=== PATIENT | female | born 1995 | race African-American/Black ===

== ENCOUNTER 2020-07-10 09:05 | Emergency (ER) | payer MEDICAID ==
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
--- OUTSIDE RECORDS SUMMARY | 2020-07-10 10:07 | XMS REPORT | Continuity of Care Document ---
:1995 Author Organization [facility] t Address [address] [place] [address] Care Team Providers Name Role Phone Byron RN Attending Clinician Unavailable Only, Test Attending Clinician Unavailable Fang BAILEYP Attending Clinician Silvana Villagran MD Attending Clinician Donnell BAILEYP Attending Clinician Payers Payer Name Policy Type Policy Number Effective Date Expiration Date S ource Problems This patient has no known problems. Allergies, Adverse Reactions, Alerts Allergy Allergy Status Severity Reaction(s) Onset Inactive Treating Comm ents Source Name Type Date Date Clinician No Known DA Active U 2018-09 [facility]ie 09-20 Clear s 00:00: Ibanez 00 [facility] No Known DA Active U 2011-09 [facility] Allergie 09-22 Clear s 00:00: Ibanez 00 [facility] Medications This patient has no known medications. Procedures This patient has no known procedures. Encounters Start End Encounter Admission Attending Care Care Encounter Source Date/Time Date/Time Type Type Clinicians Facility Department ID 2020-06-28 2020-06-28 Letter Keshia Matthews [id number] 00:00:00 00:00:00 (Out) CHARLY 350.1.13.[address] [id number] 2020-06-26 2020-06-26 Laboratory Only, [facility] 1.2.840.114 [id number] 15:30:46 15:45:46 Only Test HEALTH 350.1.13.[address] [place] [address] [phone] Primary & 357 Specialty Care 2019-12-22 2019-12-22 Urgent Fang [facility] [id number] 11:09:20 11:51:26 Care Leticia HEALTH 350.1.13.[address] [place] [address] [phone] Primary & 370 Specialty Care 2019-12-17 2019-12-17 Telemedici [facility] [id number] 13:30:44 13:50:44 ne Visit Melinda Pina HEALTH 350.1.13.10 [place] 4.2.7.2.[address] [place] [address] [phone] Primary & 231 Specialty Care 2019-12-17 2019-12-[address] [facility] [facility] 1.2.840.114 [id number] 00:00:00 00:00:00 Melinda A HEALTH 350.1.13.[address] [place] [phone] Primary & 365 Specialty Care 2019-11-19 2019-11-19 Urgent Donnell [facility] 1.2.840.114 [id number] 11:57:33 14:28:07 Care Rania HEALTH 350.1.13.[address] [place] [address] [phone] Primary & 370 Specialty Care Results Test Description Test Time Test Comments Results Result [facility] e Comments - DUP AB/PEL/SC 2020-03-23 FAX: Y COMP 15:33:00 Nguyen Henderson [phone] [place]: St: REG FAX: Christo Dasilva MD [phone] Name: FATMATA MEDINA [facility] : 1995 Age/S: 25/F [address] [facility] Unit #: [id number] Loc: [place], [place] Phys: [place] [address] Acct: [id number] Dis Date: Status: REG RCR PHONE #: [phone] Exam Date: 03/23/2020 1500 FAX #: [phone] Reason: DOPPLER OV EXAMS: CPT CODE: [id number] DUP AB/PEL/SC COMP 20730 ULTRASOUND: - DUP AB/PEL/SC COMP History: B-mode/Bowman scale imaging with color Doppler perfusion imaging and spectral analysis was performed. Spectral waveform analysis was performed at the ovarian level. Good flow pattern seen for both ovaries. Impression: Normal arterial flow pattern for both ovaries seen with good symmetry maintained. Location: U 19 at 1533 Reported and signed by: Sid Pappas M.D CC: Nguyen Henderson MD; Christo Carey MD Technologist: SADAF DUGAN Trnscrd Date/Time/By: 03/23/2020 (1533) : By: [email or web address] PAGE 1 Signed Report FAX: Nguyen Washburn [phone] [place]: St: REG FAX: Christo Dasilva MD [phone] Name: FATMATA MEDINA [facility] : 1995 Age/S: 25/F [address] Unit #: [id number] Loc: [place], [place] Phys: [place] [address] Acct: [id number] Dis Date: Status: REG RCR PHONE #: [phone] Exam Date: 03/23/2020 1500 FAX #: [phone] Reason: DOPPLER OV EXAMS: CPT CODE: [id number] DUP AB/PEL/SC COMP 47147 <Continued> Orig Print D/T: S: 03/23/2020 (4111) PAGE 2 Signed Report - LMN-1 LTD 2020-03-23 FAX: Fabiola 15:08:00 Nguyen Henderson [phone] [place]: St: REG FAX: Christo Dasilva MD [phone] Name: FATMATA MEDINA [facility] : 1995 Age/S: 25/F [address] Unit #: [id number] Loc: [place], [place] Phys: [place] [address] Acct: [id number] Dis Date: Status: REG RCR PHONE #: [phone] Exam Date: 03/23/2020 1501 FAX #: [phone] Reason: VIABILITY EXAMS: CPT CODE: [id number] LMN-1 LTD 49628 EXAM: OBSTETRICAL ULTRASOUND, 1ST TRIMESTER INDICATION: Evaluate for viability COMPARISON: None available. TECHNIQUE: Sonographic evaluation of the uterus. FINDINGS: The uterus is normal in size measuring 13.3 x 7.9 x 8.7 cm. Right ovary measures 3.3 x 1.9 x 2.4 cm and the left ovary measures 3.2 x 1.9 x 2.8 cm. The bilateral ovaries are normal with no evidence of torsion. There are no adnexal masses bilaterally. There is no free fluid in the cul-de-sac. A gestational sac is present in the uterus. Within it is an embryo with a crown-rump length of 4.0 cm, corresponding to a gestational age of 11 weeks 0 days, which is compatible with the LMP date. A yolk sac and embryonic heart motion were observed. The heart rate measures 157 bpm. IMPRESSION: Single, live intrauterine gestation at 11 weeks 0 days based on today's crown-rump length. heart rate measures 157 bpm. LOCATION: B2 at 1508 Reported and signed by: Kathia Bower M.D. CC: Nguyen Henderson MD; Christo Carey MD Technologist: SADAF DUGAN [facility] Date/Time/By: 03/23/2020 (1508) : By: 16 PAGE 1 Signed Report FAX: Nguyen Washburn [phone] [place]: St: [facility] FAX: Christo Dasilva MD [phone] Name: FATMATA MEDINA [facility] : 1995 Age/S: 25/F [address] [facility] Unit #: [id number] Loc: [place], [place]: [place] [address] Acct: [id number] Dis Date: Status: REG RCR PHONE #: [phone] Exam Date: 03/23/2020 1501 FAX #: [phone] Reason: VIABILITY EXAMS: CPT CODE: [id number] [place] LTD [address]114 <Continued> Orig Print D/T: S: 03/23/2020 (3211) PAGE 2 Signed Report UR HCG QUAL 2019-11-15 13:02:00 Test Item Value Reference Range Interpretation Comme nts UR HCG QUAL (test code = HCGQLU) NEGATIVE NEGATIVE URINALYSIS [id number] 12:06:00 Test Item Value Reference Range Interpretation Comments UA COLOR (test code = YELLOW COLU) UA APPEARANCE (test code SLHZY = APPU) UA GLUCOSE DIPSTICK (test NORMAL mg/dl NORMAL code = DGLUU) UA BILIRUBIN DIPSTICK NEGATIVE mg/dL NEGATIVE (test code = BILU) UA KETONE DIPSTICK (test 15 mg/dl mg/dl NEGATIVE A code = KETU) UA SPECIFIC GRAVITY (test 1.025 1.000-1.030 code = SGU) UA BLOOD DIPSTICK (test 150 Cl/micL NEGATIVE A code = MORELIA) Cl/micL UA PH DIPSTICK (test code 6.0 5.0-9.0 = JUDIE) UA PROTEIN DIPSTICK (test 100 mg/dl NEGATIVE A code = PROU) UA UROBILINIOGEN DIPSTICK 1.0 mg/dl mg/dl NORMAL A (test code = URO) UA NITRITE DIPSTICK (test NEGATIVE NEGATIVE code = MANUEL) UA LEUKOCYTE ESTERASE NEGATIVE Kolby/micL NEGATIVE DIPSTICK (test code = LEUU) UA WBC (test code = WBCU) 0-3 WBC/HPF NONE UA RBC (test code = RBCU) 1-3 RBC/HPF 0-3 UA EPITHELIAL CELLS (test 2-5 EPI/HPF 0-3 A code = EPIU) UA BACTERIA (test code = FEW NONE BACU) UA MUCUS (test code = TRACE MUCU) URINALYSIS [id number] 11:59:00 Test Item Value Reference Range Interpretation Comments UA COLOR (test code = YELLOW COLU) UA APPEARANCE (test code SLHZY = APPU) UA GLUCOSE DIPSTICK (test NORMAL mg/dl NORMAL code = DGLUU) UA BILIRUBIN DIPSTICK NEGATIVE mg/dL NEGATIVE (test code = BILU) UA KETONE DIPSTICK (test 15 mg/dl mg/dl NEGATIVE A code = KETU) UA SPECIFIC GRAVITY (test 1.025 1.000-1.030 code = SGU) UA BLOOD DIPSTICK (test 150 Cl/micL NEGATIVE A code = MORELIA) Cl/micL UA PH DIPSTICK (test code 6.0 5.0-9.0 = JUDIE) UA PROTEIN DIPSTICK (test 100 mg/dl NEGATIVE A code = PROU) UA UROBILINIOGEN DIPSTICK 1.0 mg/dl mg/dl NORMAL A (test code = URO) UA NITRITE DIPSTICK (test NEGATIVE NEGATIVE code = MANUEL) UA LEUKOCYTE ESTERASE NEGATIVE Kolby/micL NEGATIVE DIPSTICK (test code = LEUU) UA WBC (test code = WBCU) WBC/HPF NONE UA RBC (test code = RBCU) RBC/HPF 0-3 UA EPITHELIAL CELLS (test EPI/HPF 0-3 code = EPIU) UA BACTERIA (test code = NONE BACU) SURGICAL [id number] 09:59:00 RUN DATE: 09/15/19 [facility] *LIVE* PAGE 1 RUN TIME: 1000 Specimen Inquiry RUN USER: INTERFACE PATIENT: MEDINAFATMATA LOC: TAN Bui #: [id number] AGE/SX: 24/F [facility]: Christo Carey MD : [birth year] BED: 1 DIS: STATUS: ADM IN TLOC: SPEC #: [id number] RECD: 09/13/19 STATUS: SOUJose REQ #: [id number] BERNARDA: 09/13/19 [facility] DR: Christo Carey MD ENTERED: 09/15/19 SP TYPE: SURG SPEC OTHR DR: Self Referred Tang Godwin MD Files,Jessica Carrasco MDORDERED: GM LEVEL 4 CODES: [id number] - PLACENTA, NOS COPIES TO: Self Referred Tang Godwin MD [address] [place] [address] Mariana,Jessica Carrasco MD [address] [place] [address] [address] [place] [id number] Christo Carey MD [address] [place] [address] PROCEDURES: GM LEVEL 4 (Incomplete) TISSUES: 1. PLACENTA, NOS - Placenta, 3rd trimester. FINAL DIAGNOSIS Placenta,3rd trimester: Lima placenta with umbilical cord containing three vessels, small placenta for gestational age representing approximately the 25th percentile. GROSS AND MICROSCOPIC GROSS DESCRIPTION: Received in formalin and labeled placenta is a placenta with membranes and umbilical cord. The surface of the placenta is bluish bowman with blood vessels coursing over thesurface away from the insertion of the umbilical cord. The maternal surface of the placenta is intact with a scant amount of hemorrhage. The placenta is bread loafed and the parenchyma is beefy-red without substantial infarct. The membranes are thickened and cloudy. SECTIONS: (A) - cord close to CONTINUED ON NEXT PAGE ----- -------RUN DATE: 09/15/19 [facility] *LIVE* PAGE 2 RUN TIME: 1000 Specimen Inquiry RUN USER: INTERFACE SPEC #: [id number] PATIENT: FATMATA MEDINA #[id number] (Continued) GROSS AND MICROSCOPIC (Continued) insertion into placenta; (B)-mid cord and membranes; (C)- end of cord; (D)-placenta close to insertion of umbilical cord; (E)-mid placenta; (F)-placental margin. The placenta weighs 445 g without the attached umbilical cord and membranes. The placenta measures 13.5 x 14.5 x 3.5 cm. The segment of umbilical cord measures 37 cm in length and 0.7 cm in diameter. The cord does show increased twisting but does not contain true or false knots. MICROSCOPIC EXAMINATION: Sections of the umbilical cord reveal three vessels without significant inflammation. The membranes do not show significant inflammation. The underlying maternal decidua of the membranes shows a mixed inflammatory infiltrate which is expected. The umbilical cord does not show significant inflammation from the section from closest to the infant. The surface of the placenta does not show a significant inflammatory infiltrate. Blood vessels on the surface do not show a significant inflammatory infiltrate. Maturation is appropriate for gestational age. The underlying maternal decidua beneath the placenta contains a mixed inflammatory infiltrate. No substantial vasculitis is identified in the membranes are in the maternal decidua. The placenta is slightly small for gestational age representing approximately t he 25th percentile. POST-OP DIAGNOSIS @ 38.3 week gestation with elevated blood pressure and edema to bilateral upper and lower extremities, delivered PRE-OP DIAGNOSIS @ 38.3 week gestation with elevated blood pressure and edema to bilateral upper and lower extremities, delivered Signed SIGNATURE ON FILE Dennise Monet MD 09/15/19 0959 END OF REPORT BASIC METABOLIC [id number] 07:59:00 Test Item Value Reference Range Interpretation Comments SODIUM (test code = NA) 142 mEq/L 134-147 N POTASSIUM (test code = 4.0 mEq/L 3.4-5.0 N K) CHLORIDE (test code = 107 mEq/L 100-108 N CL) CARBON DIOXIDE (test 29 mEq/L 21-33 code = CO2) ANION GAP (test code = 10 0-20 N GAP) GLUCOSE (test code = 68 mg/dL 70-110 L GLU) BLOOD UREA NITROGEN 9 mg/dL 7-18 N (test code = BUN) GLOMERULAR FILTRATION 108.5 110-120 L Units of measure = RATE (test code = GFR) ml/mi n/1.73 m2 CREATININE (test code = 0.8 mg/dL 0.6-1.3 N CREAT) CALCIUM (test code = 7.8 mg/dL 8.0-10.5 L CA) B-TYPE NATRIURETIC [id number] 07:46:00 Test Item Value Reference Range Interpretation Comments B-TYPE NATRIURETIC PEPTIDE (test 230.0 PG/ML 0-100 H code = BNP) [id number] 19:55:00 Test Item Value Reference Range Interpretation Comments TROPONIN-I 0.020 ng/mL 0.000-0.045 N Negative: <= (test code = 0.045 Positive: TROPI) >= 0.046 Correl ation with serial results, other cardiac markers andclin ical findings is necessary to determine the clinicalsignifi cance of this result. Results using different metho dologies should not be c omparedto one another as juan titative results may jenelle y by method. - DUP VEIN [id number] 16:15:00 Name: FATMATA MEDINA [facility] : 1995 Age/S: 24 / F [address] [place] [address] Blvd Unit #: [id number] Loc: [place] [id number] Phys: Dorie Sanches VALIDATION MANAGER Acct: [id number] Dis Date: Status: ADM IN PHONE #: [phone] Exam Date: 09/13/2019 1613 FAX #: [phone] Reason: BLE edema, pain in left calf EXAMS: CPTCODE: [id number] DUP VEIN ANIYAH [address]97[address] Clinical Indication: Left calf pain, bilateral lower extremity edema; one day . Comparison: None TECHNIQUE: Sonographic evaluation of the bilateral lower extremity veinswas performed using high resolution B-mode imaging, along with pulse and color Doppler imaging. FINDINGS: Right lower extremity: The common femoral vein, femoral vein, popliteal vein and visualized posterior tibial/calf veins are patent. There is no echogenic debris to suggest deep venous thrombosis. The saphenofemoral junction is unremarkable. Left lower extremity: The common femoral vein, femoral vein, popliteal vein and visualized posterior tibial/calf veins are patent. There is no echogenic debris to suggest deep venous thrombosis. The saphenofemoral junction is unremarkable. Diffuse subcutaneous edema. IMPRESSION: 1. No deep venous thrombosis of the lower extremities. 2. Diffuse subcutaneous edema. SL: [id number] Electronically Signed by Arturo Patterson on09/13/2019 at 1615 Reported and signed by: Narciso Patterson M.D. CC: Dorie Sanches VALIDATION MANAGER; Christo Carey MD Technologist: Renée Berman RDMS(Silvana)(RCT) Trnscb Date/Time: 09/13/2019 (1614) [id number] Orig Print D/T: S: 09/13/2019 (1617) Probe: PAGE 1 Signed [id number] 13:33:00 Test Item Value Reference Range Interpretation Comments TROPONIN-I 0.019 ng/mL 0.000-0.045 N Negative: <= (test code = 0.045 Positive: TROPI) >= 0.046 Correl ation with serial results, other cardiac markers andclin ical findings is necessary to determine the clinicalsignifi cance of this result. Results using different metho dologies should not be c omparedto one another as juan titative results may jenelle y by method. [id number] 13:00:00 Test Item Value Reference Range Interpretation Comments MAGNESIUM (test code = MAG) 4.50 mg/dL 1.8-2.4 HH RAPID PLASMA [id number] 10:29:00 Test Item Value Reference Range Interpretation Comments RAPID PLASMA REAGIN (test code = NONREACTIVE NONREACTIVE RPR) AG HEPATITIS B [id number] 10:29:00 Test Item Value Reference Range Interpretation Comments AG HEPATITIS B SURFACE NON REACTIVE INDEX NonReactive (test code = HBSAG) AB HIV 1 10:29:00 Test Item Value Reference Range Interpretation Comments AB HIV 1 2 (test code = NONREACTIVE INDEX NONREACTIVE AMD44AQ) CBC W/AUTO [id number] 05:27:00 Test Item Value Reference Range Interpretation Comments WHITE BLOOD CELL (test code = 15.33 x10 3/uL 4.5-11.0 H WBC) RED BLOOD CELL (test code = 3.54 x10 6/uL 3.54-5.02 N RBC) HEMOGLOBIN (test code = HGB) 9.8 g/dL 11.0-15.0 L HEMATOCRIT (test code = HCT) 30.4 % 33.0-45.0 L MEAN CELL VOLUME (test code = 85.9 fL 81.0-99.0 N MCV) MEAN CELL HGB (test code = 27.7 pg 27.0-33.0 N MCH) MEAN CELL HGB CONCETRATION 32.2 g/dL 33.0-37.0 L (test code = MCHC) RED CELL DISTRIBUTION WIDTH CV 13.9 % 11.5-14.5 N (test code = RDW) RED CELL DISTRIBUTION WIDTH SD 42.9 fL 37.0-54.0 N (test code = RDW-SD) PLATELET COUNT (test code = 237 x10 3/uL 150-400 N PLT) MEAN PLATELET VOLUME (test 12.6 fL 7.0-9.0 H code = MPV) NEUTROPHIL % (test code = NT%) 88.9 % 56.0-77.0 H IMMATURE GRANULOCYTE % (test 1.4 % 0.0-2.0 N code = IG%) LYMPHOCYTE % (test code = LY%) 5.2 % 14.0-32.0 L MONOCYTE % (test code = MO%) 4.4 % 4.8-9.0 L EOSINOPHIL % (test code = EO%) 0.0 % 0.3-3.7 L BASOPHIL % (test code = BA%) 0.1 % 0.0-2.0 N NUCLEATED RBC % (test code = 0.0 % 0-0 N NRBC%) NEUTROPHIL # (test code = NT#) 13.63 x10 3/uL 2.0-7.6 H IMMATURE GRANULOCYTE # (test 0.22 x10 3/uL 0.00-0.03 H code = IG#) LYMPHOCYTE # (test code = LY#) 0.80 x10 3/uL 1.0-3.8 L MONOCYTE # (test code = MO#) 0.67 x10 3/uL 0.1-0.8 N EOSINOPHIL # (test code = EO#) 0.00 x10 3/uL 0.0-0.2 N BASOPHIL # (test code = BA#) 0.01 x10 3/uL 0.0-0.2 N NUCLEATED RBC # (test code = 0.00 x10 3/uL 0.0-0.1 N NRBC#) MANUAL DIFF REQUIRED (test NO code = MDIFF) [id number] 01:06:00 Test Item Value Reference Range Interpretation Comments MAGNESIUM (test code = MAG) 3.80 mg/dL 1.8-2.4 H CORD VENOUS BLOOD [id number] 23:59:00 Test Item Value Reference Range Interpretation Comments CORD VENOUS PH (test code = 7.29 7.25-7.45 N PHCV) CORD VENOUS PCO2 (test code = 35 mmHg 27-49 N PCO2CV) CORD VENOUS PO2 (test code = 29 mmHg 17-41 N PO2CV) CORD VENOUS HCO3 (test code = 16.5 MMOL/L 12-28 N HCO3CV) CORD VENOUS BASE EXCESS (test -10.0 mmol/L -8.0-0.00 L code = BEXCV) CORD VENOUS 02 SAT (test code = 50 % O2SCV) CORD ARTERIAL BLOOD [id number] 23:59:00 Test Item Value Reference Range Interpretation Comments CORD BLOOD PH (test code = PH/C) 7.24 7.18-7.38 N CORD BLOOD PCO2 (test code = 40 mmHg 32-66 N PCO2/C) CORD BLOOD PO2 (test code = 31 mmHg 6-30 H PO2/C) CORD BLOOD HCO3 (test code = 17 mmol/L 17-27 N HCO3/C) BASE EXCESS CORD (test code = -10.0 mmol/L -8.0-0.0 L ANA/C) O2 SATURATION (test code = 50 % 72-77 L O2S/C) RAPID PLASMA [id number] 20:29:00 Test Item Value Reference Range Interpretation Comments RAPID PLASMA REAGIN (test code = RPR) NONREACTIVE AG HEPATITIS B [id number] 20:29:00 Test Item Value Reference Range Interpretation Comments AG HEPATITIS B SURFACE NON REACTIVE INDEX NonReactive (test code = HBSAG) AB HIV 1 20:29:00 Test Item Value Reference Range Interpretation Comments AB HIV 1 2 (test code = NONREACTIVE INDEX NONREACTIVE [id number]) RAPID PLASMA [id number] 15:51:00 Test Item Value Reference Range Interpretation Comments RAPID PLASMA REAGIN (test code = RPR) NONREACTIVE AG HEPATITIS B [id number] 15:51:00 Test Item Value Reference Range Interpretation Comments AG HEPATITIS B SURFACE NON REACTIVE INDEX NonReactive (test code = HBSAG) AB HIV 1 15:51:00 Test Item Value Reference Range Interpretation Comments AB HIV 1 2 (test code = BHT24DD) INDEX NONREACTIVE DRUGS OF ABUSE SCREEN [id number] 15:21:00 Test Item Value Reference Range Interpretation Comments URN COCAINE (test code NEGATIVE NEGATIVE = COCAURN) URN CANNABINOIDS (test POSITIVE NEGATIVE A code = CANNABURN) URN AMPHETAMINE (test NEGATIVE NEGATIVE code = AMPHETURN) URN BARBITURATE (test NEGATIVE NEGATIVE code = BARBITURN) URN BENZODIAZEPINE NEGATIVE NEGATIVE Cut-off v alue:200 (test code = BENZOURN) ng/mL URN OPIATES (test code NEGATIVE NEGATIVE Cut-o ff value:2000 = OPIATURN) ng/mL URN PHENCYCLIDINE (PCP) NEGATIVE NEGATIVE Cuto ffs:Barbiturates (test code = PHENCURN) 200 ng/mLBenzodiaze pines 200 ng/ mLTHC Cannabinoids 50 ng/mLOpiates(Mo rphine) 2000 ng/mLAmphetamin e 1000 ng/mLCocaine 300 ng/ mLPCP phencyclidine 25 ng/mL Unconf irmed screening resul ts shouldnot be us ed for non-medical pur poses. URINALYSIS [id number] 15:15:00 Test Item Value Reference Range Interpretation Comments UA COLOR (test code = MANDY YEL/STRAW A COLU) UA APPEARANCE (test CLOUDY CLEAR A code = APPU) UA GLUCOSE DIPSTICK NEGATIVE NEGATIVE (test code = DGLUU) UA BILIRUBIN DIPSTICK NEGATIVE NEGATIVE (test code = BILU) UA KETONE DIPSTICK 3+ NEGATIVE A (test code = KETU) UA SPECIFIC GRAVITY 1.030 1.005-1.030 N (test code = SGU) UA BLOOD DIPSTICK 4+ NEGATIVE A (test code = MORELIA) UA PH DIPSTICK (test 5.0 5.0-7.0 N code = JUDIE) UA PROTEIN DIPSTICK 4+ NEGATIVE A (test code = PROU) UA UROBILINIOGEN 2.0 mg/dL 0.2-1.0 A DIPSTICK (test code = URO) UA NITRITE DIPSTICK NEGATIVE NEGATIVE (test code = MANUEL) UA LEUKOCYTE ESTERASE NEGATIVE NEGATIVE DIPSTICK (test code = LEUU) UA RBC (test code = 10-15 RBC/HPF 0-3 A RBCU) UA WBC NO REFLEX (test 0-3 WBC/HPF 0-3 Due t o QNS, urine code = WBCUCL) microscopy is performed on UNSPUNspecimen. UA WBC <10/HPF bob l not reflex urin e culture.If urin e culture is need ed, please order. UA BACTERIA (test code 2+ /HPF NONE SEEN A = BACU) UA SQUAMOUS CELLS 11-25 /HPF NONE SEEN A (test code = SQU) UA TRANSITIONAL CELLS TRACE /HPF NONE SEEN (test code = TRANU) UA RENAL CELLS (test 1+ /HPF NONE SEEN A code = CHANTAL) UA HYALINE CAST (test 20-30 /LPF NONE SEEN code = HYALU) UA MUCUS (test code = 1+ /LPF NONE SEEN MUCU) UA AMORPHOUS SEDIMENT 1+ /HPF NONE A (test code = AMORU) COMPREHENSIVE METABOLIC [id number] 15:15:00 Test Item Value Reference Range Interpretation Comments SODIUM (test code = NA) 138 mEq/L 134-147 N POTASSIUM (test code = 3.5 mEq/L 3.4-5.0 N K) CHLORIDE (test code = 108 mEq/L 100-108 N CL) CARBON DIOXIDE (test 21 mEq/L 21-33 N code = CO2) ANION GAP (test code = 13 0-20 N GAP) GLUCOSE (test code = 73 mg/dL 70-110 N GLU) BLOOD UREA NITROGEN 9 mg/dL 7-18 N (test code = BUN) GLOMERULAR FILTRATION 75.2 110-120 L Units of measure = RATE (test code = GFR) ml/mi n/1.73 m2 CREATININE (test code = 1.1 mg/dL 0.6-1.3 N CREAT) TOTAL PROTEIN (test 6.8 g/dL 6.4-8.2 N code = PROT) ALBUMIN (test code = 2.70 g/dL 3.4-5.0 L ALB) CALCIUM (test code = 8.5 mg/dL 8.0-10.5 N CA) BILIRUBIN TOTAL (test 0.5 MG/DL <1.5 N code = BILT) SGOT/AST (test code = 17 IUnit/L 15-37 N AST) SGPT/ALT (test code = 14 IUnit/L 15-65 L ALT) ALKALINE PHOSPHATASE 227 IUnit/L 20-125 H TOTAL (test code = ALKP) URIC [id number] 15:15:00 Test Item Value Reference Range Interpretation Comments URIC ACID (test code = URIC) 7.6 mg/dL 2.6-7.2 H LACTIC DEHYDROGENASE(LDH)[id number] 15:15:00 Test Item Value Reference Range Interpretation Comments LACTIC DEHYDROGENASE(LDH) (test 237 IUnits/L 84-246 N code = LDH) DRUGS OF ABUSE SCREEN [id number] 15:13:00 Test Item Value Reference Range Interpretation Comments URN COCAINE (test code NEGATIVE NEGATIVE = COCAURN) URN CANNABINOIDS (test NEGATIVE code = CANNABURN) URN AMPHETAMINE (test NEGATIVE NEGATIVE code = AMPHETURN) URN BARBITURATE (test NEGATIVE NEGATIVE code = BARBITURN) URN BENZODIAZEPINE NEGATIVE NEGATIVE Cut-off v alue:200 (test code = BENZOURN) ng/mL URN OPIATES (test code NEGATIVE NEGATIVE Cut-o ff value:2000 = OPIATURN) ng/mL URN PHENCYCLIDINE (PCP) NEGATIVE NEGATIVE Cuto ffs:Barbiturates (test code = PHENCURN) 200 ng/mLBenzodiaze pines 200 ng/ mLTHC Cannabinoids 50 ng/mLOpiates(Mo rphine) 2000 ng/mLAmphetamin e 1000 ng/mLCocaine 300 ng/ mLPCP phencyclidine 25 ng/mL Unconf irmed screening resul ts shouldnot be us ed for non-medical pur poses. CBC W/AUTO [id number] 15:06:00 Test Item Value Reference Range Interpretation Comments WHITE BLOOD CELL (test code = 8.99 x10 3/uL 4.5-11.0 N WBC) RED BLOOD CELL (test code = 4.19 x10 6/uL 3.54-5.02 N RBC) HEMOGLOBIN (test code = HGB) 11.6 g/dL 11.0-15.0 N HEMATOCRIT (test code = HCT) 36.1 % 33.0-45.0 N MEAN CELL VOLUME (test code = 86.2 fL 81.0-99.0 N MCV) MEAN CELL HGB (test code = MCH) 27.7 pg 27.0-33.0 N MEAN CELL HGB CONCETRATION 32.1 g/dL 33.0-37.0 L (test code = MCHC) RED CELL DISTRIBUTION WIDTH CV 14.0 % 11.5-14.5 N (test code = RDW) RED CELL DISTRIBUTION WIDTH SD 42.9 fL 37.0-54.0 N (test code = RDW-SD) PLATELET COUNT (test code = 255 x10 3/uL 150-400 N PLT) MEAN PLATELET VOLUME (test code 12.9 fL 7.0-9.0 H = MPV) NEUTROPHIL % (test code = NT%) 74.0 % 56.0-77.0 N IMMATURE GRANULOCYTE % (test 3.2 % 0.0-2.0 H code = IG%) LYMPHOCYTE % (test code = LY%) 13.6 % 14.0-32.0 L MONOCYTE % (test code = MO%) 7.2 % 4.8-9.0 N EOSINOPHIL % (test code = EO%) 1.7 % 0.3-3.7 N BASOPHIL % (test code = BA%) 0.3 % 0.0-2.0 N NUCLEATED RBC % (test code = 0.0 % 0-0 N NRBC%) NEUTROPHIL # (test code = NT#) 6.65 x10 3/uL 2.0-7.6 N IMMATURE GRANULOCYTE # (test 0.29 x10 3/uL 0.00-0.03 H code = IG#) LYMPHOCYTE # (test code = LY#) 1.22 x10 3/uL 1.0-3.8 N MONOCYTE # (test code = MO#) 0.65 x10 3/uL 0.1-0.8 N EOSINOPHIL # (test code = EO#) 0.15 x10 3/uL 0.0-0.2 N BASOPHIL # (test code = BA#) 0.03 x10 3/uL 0.0-0.2 N NUCLEATED RBC # (test code = 0.00 x10 3/uL 0.0-0.1 N NRBC#) MANUAL DIFF REQUIRED (test code NO = MDIFF) URINALYSIS [id number] 15:06:00 Test Item Value Reference Range Interpretation Comments UA COLOR (test code = COLU) MANDY YEL/STRAW A UA APPEARANCE (test code = APPU) CLOUDY CLEAR A UA GLUCOSE DIPSTICK (test code = NEGATIVE NEGATIVE DGLUU) UA BILIRUBIN DIPSTICK (test code = NEGATIVE NEGATIVE BILU) UA KETONE DIPSTICK (test code = 3+ NEGATIVE A KETU) UA SPECIFIC GRAVITY (test code = 1.030 1.005-1.030 N SGU) UA BLOOD DIPSTICK (test code = MORELIA) 4+ NEGATIVE A UA PH DIPSTICK (test code = JUDIE) 5.0 5.0-7.0 N UA PROTEIN DIPSTICK (test code = 4+ NEGATIVE A PROU) UA UROBILINIOGEN DIPSTICK (test 2.0 mg/dL 0.2-1.0 A code = URO) UA NITRITE DIPSTICK (test code = NEGATIVE NEGATIVE MANUEL) UA LEUKOCYTE ESTERASE DIPSTICK NEGATIVE NEGATIVE (test code = LEUU) UA RBC (test code = RBCU) RBC/HPF 0-3 DRUGS OF ABUSE SCREEN [id number] 19:56:00 Test Item Value Reference Range Interpretation Comments URN COCAINE (test code NEGATIVE NEGATIVE = COCAURN) URN CANNABINOIDS (test POSITIVE NEGATIVE A code = CANNABURN) URN AMPHETAMINE (test NEGATIVE NEGATIVE code = AMPHETURN) URN BARBITURATE (test NEGATIVE NEGATIVE code = BARBITURN) URN BENZODIAZEPINE NEGATIVE NEGATIVE Cut-off v alue:200 (test code = BENZOURN) ng/mL URN OPIATES (test code NEGATIVE NEGATIVE Cut-o ff value:2000 = OPIATURN) ng/mL URN PHENCYCLIDINE (PCP) NEGATIVE NEGATIVE Cuto ffs:Barbiturates (test code = PHENCURN) 200 ng/mLBenzodiaze pines 200 ng/ mLTHC Cannabinoids 50 ng/mLOpiates(Mo rphine) 2000 ng/mLAmphetamin e 1000 ng/mLCocaine 300 ng/ mLPCP phencyclidine 25 ng/mL Unconf irmed screening resul ts shouldnot be us ed for non-medical pur poses. DRUGS OF ABUSE SCREEN [id number] 19:32:00 Test Item Value Reference Range Interpretation Comments URN COCAINE (test code NEGATIVE NEGATIVE = COCAURN) URN CANNABINOIDS (test NEGATIVE code = CANNABURN) URN AMPHETAMINE (test NEGATIVE NEGATIVE code = AMPHETURN) URN BARBITURATE (test NEGATIVE NEGATIVE code = BARBITURN) URN BENZODIAZEPINE NEGATIVE NEGATIVE Cut-off v alue:200 (test code = BENZOURN) ng/mL URN OPIATES (test code NEGATIVE NEGATIVE Cut-o ff value:2000 = OPIATURN) ng/mL URN PHENCYCLIDINE (PCP) NEGATIVE NEGATIVE Cuto ffs:Barbiturates (test code = PHENCURN) 200 ng/mLBenzodiaze pines 200 ng/ mLTHC Cannabinoids 50 ng/mLOpiates(Mo rphine) 2000 ng/mLAmphetamin e 1000 ng/mLCocaine 300 ng/ mLPCP phencyclidine 25 ng/mL Unconf irmed screening resul ts shouldnot be us ed for non-medical pur poses. - US [id number] 18:51:00 Name: FATMATA MEDINA [facility] : 1995 Age/S: 24 / F [address] [place] [address] Blvd Unit #: [id number] Loc: [place], [place] Phys: Kailee Aviles MD Acct: [id number] Dis Date: Status: REG ER PHONE #: [phone] Exam Date: 07/21/2019 1846 FAX #: [phone] Reason: s/p fall in EXAMS: CPTCODE: [id number] [place] LTD 70641 PROCEDURE: LIMITED OBSTETRICAL ULTRASOUND INDICATION: s/p fall in EGA 30 weeks 6 days COMPARISON: 02/09/2019 1st trimester ultrasound TECHNIQUE: Limited obstetrical ultrasound is performed with grayscale and M-mode imaging. Formal assessment of anatomy not performed as part of this exam. FINDINGS: Single living intrauterine fetus in cephalic presentation. heart rate 144- 149. The placenta is anterior grade 1. No evidence for previa. No abnormal fluid collection to indicate hemorrhage. Amniotic fluidvolume is subjectively normal. The cervix is not demonstrated. ULTRASOUND FINDINGS: Gestation: Single: Yes Cardiac Motion: Yes (BPM):147 Presentation: Cephalic Placenta Location: Anterior Placenta Grade: 1 Placenta Previa: No Amniotic Fluid: Yes Uterus/Cervix/Adnexa: Clinical: LMP= MA= 30wks 6days DANYA: 18.6 cm S/D Ratio: 2.4 IMPRESSION: Single living intrauterine fetus in cephalic presentation. No acute abnormality demonstrated. SL: SURENDRA at 185 Reported and signed by: Raul Cornell M.D. PAGE 1 Signed Report (CONTINUED) Name: FATMATA MEDINA [place] : 1995 Age/S: 24 / F [address] [place] [address] Unit #: [id number] Loc: [place] [address] Phys: Kailee Aviles MD Acct: [id number] Dis Date: Status: REG ER PHONE #: [phone] Exam Date: 07/21/2019 184 FAX #: [phone] Reason: s/p fall in EXAMS: CPT CODE: [id number] LTD 07557 <Continued> CC: Kailee Aviles MD; Christo Carey MD Technologist: Radha Daniel RDMS() Trnscb Date/Time: 07/21/2019 (1850) t.SDR.KWL Orig Print D/T: S: 07/21/2019 (1853) Probe: PAGE 2 Signed Report- XR KNEE 1 OR 2 V [id number] 14:19:00 FAX: Leopoldo Esquivel MD [place]: St: [facility] FAX: Christo Dasilva MD [phone] Name: FATMATA MEDINA [facility] : 1995 Age/S: 24/F [address] Unit #: [id number] Loc: [place], [place] Phys: [place] [id number] Acct: [id number] Dis Date: Status: REG ER PHONE #: [phone] Exam Date: 07/21/2019 1405 FAX #: [phone] Reason: knee pain EXAMS: CPT CODE: [id number] XR KNEE 1 OR 2 V RT [id number] CLINICAL HISTORY: Right knee pain, fall previously. Two-view right knee. COMPARISON:February 14, 2018 Good alignment is seen with no evidence of fracture or dislocation. Small curvilinear calcification at the medial epicondylar region, likely old proximal medial collateral ligament trauma, occurring in the interval.. Mineralization pattern is intact. No obvious joint effusion is seen. IMPRESSION: No acute bone or joint space abnormality. Good alignment. No fracture seen. Location: U19 at 1419 Reported and signed by: Sid Pappas M.D. CC: Leopoldo Esquivel MD; Christo Carey MD Technologist: CESIA FLOWERS [facility] Date/Time/By: 07/21/2019 (1450) : By: [facility] PAGE 1 Signed Report FAX: Leopoldo Esquivel MD [place]: St: [facility] FAX: Christo Dasilva MD [phone] Name: FATMATA MEDINA [facility] : 1995 Age/S: 24/F [address] [facility] Unit #: [id number] Loc: [place], [place]: [place] [address] Acct: [id number] Dis Date: Status: REG ER PHONE #: [phone] Exam Date: 07/21/2019 1405 FAX #: [phone] Reason: knee pain EXAMS: CPT CODE: [id number] XR KNEE 1 OR 2 V RT [id number] <Continued> Orig Print D/T: S: 07/21/2019 (3460) PAGE 2 Signed ReportBASIC METABOLIC [id number] 13:18:00 Test Item Value Reference Range Interpretation Comments SODIUM (test code = NA) 140 mmol/l 134.0-147.0 N POTASSIUM (test code = K) 3.4 mmol/L 3.6-5.2 L CHLORIDE (test code = CL) 105 mmol/l 98.0-107.0 N CARBON DIOXIDE (test code = CO2) 24.0 mmol/l 21.0-33.0 N ANION GAP (test code = GAP) 14.4 0-20 N GLUCOSE (test code = GLU) 94 mg/dl 70.0-110.0 N BLOOD UREA NITROGEN (test code = 6 mg/dl 7.0-18.0 L BUN) CREATININE (test code = CREAT) 0.74 mg/dL 0.60-1.30 N GFR NON BLACK (test code = 104 mL/min 110-120 L GFRNONBLACK) GFR BLACK (test code = GFRBLACK) 126 mL/min 133-145 L CALCIUM (test code = CA) 8.4 mg/dl 8.0-10.5 N Specimen comments: Clean CatchHEPATIC FUNCTION PANEL [id number] 13:18:00 Test Item Value Reference Range Interpretation Comments TOTAL PROTEIN (test code = PROT) 6.9 GM/DL 6.0-8.1 N ALBUMIN (test code = ALB) 2.6 gm/dL 3.2-4.7 L BILIRUBIN TOTAL (test code = 0.3 mg/dl 0.0-1.0 N BILT) BILIRUBIN DIRECT (test code = 0.1 mg/dl 0.0-0.3 N BILD) SGOT/AST (test code = AST) 11 Units/L 15.0-37.0 L SGPT/ALT (test code = ALT) 12 Units/L 12.0-78.0 N ALKALINE PHOSPHATASE TOTAL (test 129 Units/L 50.0-136.0 N code = ALKP) Specimen comments: Clean CatchBASIC METABOLIC [id number] 13:13:00 Test Item Value Reference Range Interpretation Comments SODIUM (test code = NA) 140 mmol/l 134.0-147.0 N POTASSIUM (test code = K) 3.4 mmol/L 3.6-5.2 L CHLORIDE (test code = CL) 105 mmol/l 98.0-107.0 N CARBON DIOXIDE (test code = CO2) 24.0 mmol/l 21.0-33.0 N ANION GAP (test code = GAP) 14.4 0-20 N GLUCOSE (test code = GLU) mg/dl 70.0-110.0 BLOOD UREA NITROGEN (test code = mg/dl 7.0-18.0 BUN) CREATININE (test code = CREAT) mg/dL 0.60-1.30 GFR NON BLACK (test code = mL/min 110-120 GFRNONBLACK) GFR BLACK (test code = GFRBLACK) mL/min 133-145 CALCIUM (test code = CA) mg/dl 8.0-10.5 Specimen comments: Clean CatchHEPATIC FUNCTION PANEL [id number] 13:13:00 Test Item Value Reference Range Interpretation Comments TOTAL PROTEIN (test code = PROT) gm/dL 6.4-8.2 ALBUMIN (test code = ALB) gm/dl 3.2-4.7 BILIRUBIN TOTAL (test code = BILT) mg/dl 0.0-1.0 BILIRUBIN DIRECT (test code = BILD) mg/dl 0.0-0.3 SGOT/AST (test code = AST) Units/L 15.0-37.0 SGPT/ALT (test code = ALT) Units/L 12.0-78.0 ALKALINE PHOSPHATASE TOTAL (test Units/L 50.0-136.0 code = ALKP) Specimen comments: Clean CatchCBC W/AUTO [id number] 12:59:00 Test Item Value Reference Range Interpretation Comments WHITE BLOOD CELL (test code = 8.0 K/mm3 4.5-11.0 N WBC) RED BLOOD CELL (test code = 4.09 M/mm3 3.80-5.20 N RBC) HEMOGLOBIN (test code = HGB) 11.7 gm/dL 12.0-16.0 L HEMATOCRIT (test code = HCT) 36.3 % 36.0-48.0 N MEAN CELL VOLUME (test code = 88.8 UM3 82.0-99.0 N MCV) MEAN CELL HGB (test code = MCH) 28.6 UUG 25.5-32.5 N MEAN CELL HGB CONCETRATION 32.2 gm/dL 29.0-35.5 N (test code = MCHC) RED CELL DISTRIBUTION WIDTH 13.0 % 11.5-15.0 N (test code = RDW) RED CELL DISTRIBUTION WIDTH SD 41.6 fL 34.8-50.2 N (test code = RDW-SD) PLATELET COUNT (test code = 315 K/mm3 150-400 N PLT) MEAN PLATELET VOLUME (test code 10.9 fl 7.4-10.4 H = MPV) NEUTROPHIL % (test code = NT%) 73.2 % 49.0-76.0 N IMMATURE GRANULOCYTE % (test 1.1 % 0.0-0.4 H code = IG%) LYMPHOCYTE % (test code = LY%) 19.1 % 23.0-38.0 L MONOCYTE % (test code = MO%) 4.9 % 1.0-10.0 N EOSINOPHIL % (test code = EO%) 1.3 % 1.0-5.0 N BASOPHIL % (test code = BA%) 0.4 % 0.0-1.0 N NEUTROPHIL # (test code = NT#) 5.9 K/mm3 2.4-6.3 N IMMATURE GRANULOCYTE # (test 0.09 x10 3/uL 0.00-0.07 H code = IG#) LYMPHOCYTE # (test code = LY#) 1.5 K/mm3 1.2-4.0 N MONOCYTE # (test code = MO#) 0.4 K/mm3 0.0-0.6 N EOSINOPHIL # (test code = EO#) 0.1 K/MM3 0.0-0.7 N BASOPHIL # (test code = BA#) 0.0 K/mm3 0.0-0.2 N URINALYSIS [id number] 23:35:00 Test Item Value Reference Range Interpretation Comments UA COLOR (test code = COLU) YELLOW UA APPEARANCE (test code = CLEAR APPU) UA GLUCOSE DIPSTICK (test NORMAL mg/dl NORMAL code = DGLUU) UA BILIRUBIN DIPSTICK (test NEGATIVE mg/dL NEGATIVE code = BILU) UA KETONE DIPSTICK (test 150 mg/dl mg/dl NEGATIVE A code = KETU) UA SPECIFIC GRAVITY (test 1.015 1.000-1.030 code = SGU) UA BLOOD DIPSTICK (test NEGATIVE Cl/micL NEGATIVE code = MORELIA) UA PH DIPSTICK (test code = 6.0 5.0-9.0 JUDIE) UA PROTEIN DIPSTICK (test NEGATIVE mg/dl NEGATIVE code = PROU) UA UROBILINIOGEN DIPSTICK NORMAL mg/dl NORMAL (test code = URO) UA NITRITE DIPSTICK (test NEGATIVE NEGATIVE code = MANUEL) UA LEUKOCYTE ESTERASE NEGATIVE Kolby/micL NEGATIVE DIPSTICK (test code = LEUU) UA WBC (test code = WBCU) 0-3 WBC/HPF NONE UA RBC (test code = RBCU) 0-2 RBC/HPF 0-3 UA EPITHELIAL CELLS (test 10-15 EPI/HPF 0-3 A code = EPIU) UA BACTERIA (test code = MOD NONE BACU) UA MUCUS (test code = MUCU) 2+ URINALYSIS [id number] 23:27:00 Test Item Value Reference Range Interpretation Comments UA COLOR (test code = COLU) YELLOW UA APPEARANCE (test code = CLEAR APPU) UA GLUCOSE DIPSTICK (test NORMAL mg/dl NORMAL code = DGLUU) UA BILIRUBIN DIPSTICK (test NEGATIVE mg/dL NEGATIVE code = BILU) UA KETONE DIPSTICK (test 150 mg/dl mg/dl NEGATIVE A code = KETU) UA SPECIFIC GRAVITY (test 1.015 1.000-1.030 code = SGU) UA BLOOD DIPSTICK (test NEGATIVE Cl/micL NEGATIVE code = MORELIA) UA PH DIPSTICK (test code = 6.0 5.0-9.0 JUDIE) UA PROTEIN DIPSTICK (test NEGATIVE mg/dl NEGATIVE code = PROU) UA UROBILINIOGEN DIPSTICK NORMAL mg/dl NORMAL (test code = URO) UA NITRITE DIPSTICK (test NEGATIVE NEGATIVE code = MANEUL) UA LEUKOCYTE ESTERASE NEGATIVE Kolby/micL NEGATIVE DIPSTICK (test code = LEUU) UA WBC (test code = WBCU) WBC/HPF NONE UA RBC (test code = RBCU) RBC/HPF 0-3 UA EPITHELIAL CELLS (test EPI/HPF 0-3 code = EPIU) UA BACTERIA (test code = NONE BACU) - US PREG UT [id number] 09:50:00 Name: FATMATA MEDINA PITER [facility] : 1995 Age/S: 23 / F [address] [place] [address] Blvd Unit #: [id number] Loc: [place] [id number] Phys: Nguyen Henderson MD Acct: [id number] Dis Date: Status: REG CLI PHONE #: [phone] Exam Date: 02/09/2019 09 FAX #: [phone] Reason: ABILITY IUP EXAMS: CPTCODE: [id number] [place] PREG UT TRANSVAGINAL 61120 REASON FOR EXAM: VIABILITY IUP FIRST TRIMESTER ULTRASOUND COMPARISON: None Real-time ultrasound examination of pelvis was performed using transabdominal and endovaginal approach. LMP: Unknown The uterus measures 9.1 x 4.9 x 6.5 cm cm and contains a lima intrauterine gestation. Yolk sac is noted within the gestational sac. A pole is seen with a crown-rump length of 1.2 cm. No gross anomalies are i dentified. Gestational age based on crown-rump length is7 weeks 3 days. cardiac activity is noted with heart rate of 140 beats per minute. The right ovary measures 3.7 x 2.4 x 2.2 cm cm. The left ovary measures 3.1 x 1.0 x 1.0 cm. No extraovarian adnexal mass is noted. There is no free fluid in the pelvis. IMPRESSION: Live intrauterine with gestational age of7 weeks 3 days based onsonographic age. EDC isJanuary 2019. Follow-up exam is recommended as clinically indicated or at 18-20 weeks for anatomic survey. at 0950 Reported and signed by: Arabella Rios M.D. CC: Nguyen Henderson MD Technologist: Margarita Espinoza RDMS(A)(OB) Trnscb Date/Time: 02/09/2019 (0950) Nory Orig Print D/T: S: 02/09/2019 (0953) Probe: [id number] PAGE 1 Signed Report- US PREG 1ST [id number] 09:50:00 Name: FATMATA MEDINA [facility] [place] : 1995 Age/S: 23 / F [address] [place] [address] Blvd Unit #: [id number] Loc: [place] [id number] Phys: Nguyen Henderson MD Acct: [id number] Dis Date: Status: REG CLI PHONE #: [phone] Exam Date: 02/09/2019934 FAX #: [phone] Reason: VIABILITY IUP EXAMS: CPTCODE: [id number] US PREG 1ST TRIMTR 65023 REASON FOR EXAM: VIABILITY IUP FIRST TRIMESTER ULTRASOUND COMPARISON: None Real- time ultrasound examination of pelvis was performed using transabdominal and endovaginal approach. LMP: Unknown The uterus measures 9.1 x 4.9 x 6.5 cm cm and contains a lima intrauterine gestation. Yolk sac is noted within the gestational sac. A pole is seen with a crown-rump length of 1.2 cm. No gross anomalies are i dentified. Gestational age based on crown-rump length is7 weeks 3 days. cardiac activity is noted with heart rate of 140 beats per minute. The right ovary measures 3.7 x 2.4 x 2.2 cm cm. The left ovary measures 3.1 x 1.0 x 1.0 cm. No extraovarian adnexal mass is noted. There is no free fluid in the pelvis. IMPRESSION: Live intrauterine with gestational age of7 weeks 3 days based onsonographic age. [facility] isJanuary 2019. Follow-up exam is recommended as clinically indicated or at 18-20 weeks for anatomic survey. at 0950 Reported and signed by: Arabella Rios M.D. CC: Nguyen Henderson MD Technologist: Margarita Espinoza RDMS(A)(OB) Trnscb Date/Time: 02/09/2019 (09) Nory Orig Print D/T: S: 02/09/2019 (0953) Probe: PAGE 1 Signed ReportAG [id number] 15:01:00 Test Item Value Reference Range Interpretation Comments AG CHLAMYDIA (test code = NEG FOR CHLAM AG NEGATIVE CHLAM) URINALYSIS [id number] 04:09:00 Test Item Value Reference Range Interpretation Comments UA COLOR (test code = YELLOW COLU) UA APPEARANCE (test code CLEAR = APPU) UA GLUCOSE DIPSTICK (test NORMAL mg/dl NORMAL code = DGLUU) UA BILIRUBIN DIPSTICK NEGATIVE mg/dL NEGATIVE (test code = BILU) UA KETONE DIPSTICK (test NEGATIVE mg/dl NEGATIVE code = KETU) UA SPECIFIC GRAVITY (test 1.020 1.000-1.030 code = SGU) UA BLOOD DIPSTICK (test 25 Cl/micL Cl/micL NEGATIVE A code = MORELIA) UA PH DIPSTICK (test code 6.0 5.0-9.0 = JUDIE) UA PROTEIN DIPSTICK (test NEGATIVE mg/dl NEGATIVE code = PROU) UA UROBILINIOGEN DIPSTICK NORMAL mg/dl NORMAL (test code = URO) UA NITRITE DIPSTICK (test NEGATIVE NEGATIVE code = MANUEL) UA LEUKOCYTE ESTERASE NEGATIVE Kolby/micL NEGATIVE DIPSTICK (test code = LEUU) UA WBC (test code = WBCU) 0-2 WBC/HPF NONE UA RBC (test code = RBCU) 3-5 RBC/HPF 0-3 UA EPITHELIAL CELLS (test 1-3 EPI/HPF 0-3 code = EPIU) UA BACTERIA (test code = TRACE NONE BACU) UA MUCUS (test code = 1+ MUCU) UR HCG [id number] 04:09:00 Test Item Value Reference Range Interpretation Comments UR HCG QUAL (test code = HCGQLU) NEGATIVE NEGATIVE URINALYSIS [id number] 04:04:00 Test Item Value Reference Range Interpretation Comments UA COLOR (test code = YELLOW COLU) UA APPEARANCE (test code CLEAR = APPU) UA GLUCOSE DIPSTICK (test NORMAL mg/dl NORMAL code = DGLUU) UA BILIRUBIN DIPSTICK NEGATIVE mg/dL NEGATIVE (test code = BILU) UA KETONE DIPSTICK (test NEGATIVE mg/dl NEGATIVE code = KETU) UA SPECIFIC GRAVITY (test 1.020 1.000-1.030 code = SGU) UA BLOOD DIPSTICK (test 25 Cl/micL Cl/micL NEGATIVE A code = MORELIA) UA PH DIPSTICK (test code 6.0 5.0-9.0 = JUDIE) UA PROTEIN DIPSTICK (test NEGATIVE mg/dl NEGATIVE code = PROU) UA UROBILINIOGEN DIPSTICK NORMAL mg/dl NORMAL (test code = URO) UA NITRITE DIPSTICK (test NEGATIVE NEGATIVE code = MANUEL) UA LEUKOCYTE ESTERASE NEGATIVE Kolby/micL NEGATIVE DIPSTICK (test code = LEUU) UA WBC (test code = WBCU) WBC/HPF NONE UA RBC (test code = RBCU) RBC/HPF 0-3 UA EPITHELIAL CELLS (test EPI/HPF 0-3 code = EPIU) UA BACTERIA (test code = NONE BACU) UR HCG [id number] 04:04:00 Test Item Value Reference Range Interpretation Comments UR HCG QUAL (test code = HCGQLU) NEGATIVE NEGATIVE URINALYSIS [id number] 04:02:00 Test Item Value Reference Range Interpretation Comments UA COLOR (test code = YELLOW COLU) UA APPEARANCE (test code CLEAR = APPU) UA GLUCOSE DIPSTICK (test NORMAL mg/dl NORMAL code = DGLUU) UA BILIRUBIN DIPSTICK NEGATIVE mg/dL NEGATIVE (test code = BILU) UA KETONE DIPSTICK (test NEGATIVE mg/dl NEGATIVE code = KETU) UA SPECIFIC GRAVITY (test 1.020 1.000-1.030 code = SGU) UA BLOOD DIPSTICK (test 25 Cl/micL Cl/micL NEGATIVE A code = MORELIA) UA PH DIPSTICK (test code 6.0 5.0-9.0 = JUDIE) UA PROTEIN DIPSTICK (test NEGATIVE mg/dl NEGATIVE code = PROU) UA UROBILINIOGEN DIPSTICK NORMAL mg/dl NORMAL (test code = URO) UA NITRITE DIPSTICK (test NEGATIVE NEGATIVE code = MANUEL) UA LEUKOCYTE ESTERASE NEGATIVE Kolby/micL NEGATIVE DIPSTICK (test code = LEUU) UA WBC (test code = WBCU) WBC/HPF NONE UA RBC (test code = RBCU) RBC/HPF 0-3 UA EPITHELIAL CELLS (test EPI/HPF 0-3 code = EPIU) UA BACTERIA (test code = NONE BACU) UR HCG [id number] 04:02:00 Test Item Value Reference Range Interpretation Comments UR HCG QUAL (test code = HCGQLU) NEGATIVE - XR SHOULDER 2 + V [id number] 13:55:00 FAX: Charline Clarke NP [phone] [place]: St: REG Name: FATMATA MEDINA [facility] : 1995 Age/S: 23/[address] [facility] [address] Unit#: [id number] Loc: [place], [place]: [place] [address] Acct: [id number] Dis Date: Status: REG ER PHONE #: [phone] Exam Date: 11/09/2018 1347 FAX #: [phone] Reason: fall EXAMS: CPT CODE: [id number] XR SHOULDER 2 + V RT 22244 Location: U19. RIGHT SHOULDER, 3 VIEWS HISTORY: fall FINDINGS: Ac and glenohumeral joints are maintained. No fracture or dislocation. No suspicious osseous lesion. IMPRESSION: No fracture or dislocation. at 3147 Reported and signed by: Julio Cesar Neal M.D. CC: Charline Clarke NP Technologist: CESIA Jalloh Date/Time/By: 11/09/2018 (8787) : By: [email or web address] PAGE 1 Signed Report FAX: Charline Clarke NP [phone] [place]: St: REG Name: FATMATA MEDINA [facility] : 1995 Age/S: 23/F [address] [facility] [address] Unit #: [id number] Loc: [place], [place] Phys: Charline Clarke [employer] MANAGER [address] Acct: [id number] Dis Date: Status: REG ER PHONE #: [phone] Exam Date: 11/09/2018 1347 FAX #: [phone] Reason: fall EXAMS: CPT CODE: [id number] XR SHOULDER 2 + V RT [id number] <Continued> Orig Print D/T: S: 11/09/2018 (3623) PAGE 2 Signed Report- XR RIBS UNI W/CXR 3+V [id number] 13:54:00 FAX: PatriciaCharline tovar VALIDATION MANAGER [phone] [place]: St: REG Name: [facility] : 1995 Age/S: 23/F [address] [facility] Unit#: [id number] Loc: [place], [place] Phys: Charline Clarke VALIDATION MANAGER [id number] Acct: [id number] Dis Date: Status: REG ER PHONE #: [phone] Exam Date: 11/09/2018 1347 FAX #: [phone] Reason: fall EXAMS: CPT CODE: [id number] XR RIBS UNI W/CXR 3+[place] [id number] Location: U19. CHEST X-RAY, FRONTAL VIEW WITH RIGHT RIB SERIES HISTORY: fall FINDINGS: The lungs are likelyclear. No consolidation, pleural effusion or pneumothorax. The heart size is normal. The bones are unremarkable. No right rib fracture. IMPRESSION: No evidence of acute cardiopulmonary disease. No right rib fracture. at 3104 Reported and signed by: Julio Cesar Neal M.D. CC: Charline Clarke NP Technologist: CESIA FLOWERS [facility] Date/Time/By: 11/09/2018 (2266) : By: [email or web address] PAGE 1 Signed Report FAX: Charline Clarke NP [phone] [place]: St: REG --- Name: FATMATA MEDINA [facility] : 1995 Age/S: 23/F [address] [facility] Unit #: [id number] Loc: [place], [place] Phys: [place] [address] Acct: [id number] Dis Date: Status: REG ER PHONE #: [phone] Exam Date: 11/09/2018 1347 FAX #: [phone] Reason: fall EXAMS: CPT CODE: [id number] XR RIBS UNI W/CXR 3+[place] [id number] <Continued> Orig Print D/T: S: 11/09/2018 (0736) PAGE 2 Signed Report
[2020-07-10 10:35] LABS: Urine Blood NEGATIVE (NEG); Urine Glucose NEGATIVE (NEG); Urine Protein NEGATIVE (NEG); Urine pH 8.5 (5.0-7.0)
[2020-07-10 10:58] LABS: Absolute Lymphocytes (CBC) 1.3 K/uL (0.7-4.9); Basophils % 0.4 % (0-1.3); Hematocrit 30.6 % (36.0-45.0); Lymphocytes % 21.3 % (15.3-44.8); MPV 9.4 fL (7.6-11.3)
[2020-07-10 10:59] LABS: Urine Bacteria >50 /HPF (<20); Urine RBC <5 /HPF (NONE SEEN)
[2020-07-10 11:04] LABS: Urine Culture Reflex Order NOT NEEDED
[2020-07-10] MEDS ORDERED: Ringers Lactate 1,000 ML IV ONE (11:05)
[2020-07-10] MEDS ORDERED: ACETAMINOPHEN 500 MG TAB ONE (11:05)
[2020-07-10 11:17] LABS: BUN Blood Urea Nitrogen 7 mg/dL (7-18); Bicarbonate 24 mmol/L (21-32); Glucose Level 79 mg/dL (74-106); Potassium 3.8 mmol/L (3.5-5.1); Sodium Level 139 mmol/L (136-145)
--- NOTE | 2020-07-10 12:11 | EDPHYS ---
Physician Documentation [facility] Name: Sariah Medina Age: 25 yrs Sex: Female : 1995 Arrival Date: 07/10/2020 Time: 09:06 Bed 13 Private MD: ED Physician Singh Adamson HPI: 07/10 09:39 This 25 yrs old Black Female presents to ER via Ambulatory with complaints of Abdominal jr8 Pain. 09:39 The patient c/o suprapubic pain x 2 days. Associated symptoms include dysuria and jr8 urinary frequency. Denies fever, chills, back pain, N/V/D, or any other symptoms. The pt is 27 weeks and states that her most recent OB appointment was 1 week ago. HX of pre-eclampsia. . 10:10 Severity of pain: At its worst the pain was mild in the emergency department the pain jr8 is unchanged. The patient has not experienced similar symptoms in the past. The patient has been recently seen by a physician: the patient's primary care provider. C T TECH: 07/11 07:37 LMP N/A - iw Historical: - Allergies: 07/10 09:32 No Known Allergies; aa5 - PMHx: 09:32 preeclampsia; aa5 - PSHx: 09:32 None; aa5 - Immunization history:: Adult Immunizations unknown. - Social history:: Smoking status: Patient denies any tobacco usage or history of. Patient uses street drugs, marijuana. ROS: 10:10 Eyes: Negative for injury, pain, redness, and discharge, ENT: Negative for injury, jr8 pain, and discharge, Neck: Negative for injury, pain, and swelling, Cardiovascular: Negative for chest pain, palpitations, and edema, Respiratory: Negative for shortness of breath, cough, wheezing, and pleuritic chest pain, Back: Negative for injury and pain, MS/Extremity: Negative for injury and deformity, Skin: Negative for injury, rash, and discoloration, Neuro: Negative for headache, weakness, numbness, tingling, and seizure. 10:10 Abdomen/GI: Positive for abdominal pain, abdominal cramps, Negative for nausea, vomiting, and diarrhea. 10:10 : Positive for urinary frequency, burning with urination. Exam: 10:10 Eyes: Pupils equal round and reactive to light, extra-ocular motions intact. Lids and jr8 lashes normal. Conjunctiva and sclera are non-icteric and not injected. Cornea within normal limits. Periorbital areas with no swelling, redness, or edema. ENT: Nares patent. No nasal discharge, no septal abnormalities noted. Tympanic membranes are normal and external auditory canals are clear. Oropharynx with no redness, swelling, or masses, exudates, or evidence of obstruction, uvula midline. Mucous membranes moist. Neck: Trachea midline, no thyromegaly or masses palpated, and no cervical lymphadenopathy. Supple, full range of motion without nuchal rigidity, or vertebral point tenderness. No Meningismus. Cardiovascular: Regular rate and rhythm with a normal S1 and S2. No gallops, murmurs, or rubs. Normal PMI, no JVD. No pulse deficits. Respiratory: Lungs have equal breath sounds bilaterally, clear to auscultation and percussion. No rales, rhonchi or wheezes noted. No increased work of breathing, no retractions or nasal flaring. Abdomen/GI: Soft with mild suprapubic tenderness, with normal bowel sounds. No distension or tympany. No guarding or rebound. Back: No spinal tenderness. No costovertebral tenderness. Full range of motion. Skin: Warm, dry with normal turgor. Normal color with no rashes, no lesions, and no evidence of cellulitis. MS/ Extremity: Pulses equal, no cyanosis. Neurovascular intact. Full, normal range of motion. Neuro: Awake and alert, GCS 15, oriented to person, place, time, and situation. Cranial nerves II-XII grossly intact. Motor strength 5/5 in all extremities. Sensory grossly intact. Cerebellar exam normal. Normal gait. Vital Signs: 09:18 BP 95 / 55; Pulse 72; Resp 18 S; Temp 98.3(O); Pulse Ox 100% on R/A; aa5 11:42 BP 103 / 57; Pulse 70; Resp 16; Pulse Ox 98% on R/A; iw MDM: 09:19 Patient medically screened. jr8 12:09 Data reviewed: vital signs, nurses notes, lab test result(s), and as a result, I will jr8 discharge patient. Data interpreted: Pulse oximetry: on room air is 98 %. Interpretation: normal. Counseling: I had a detailed discussion with the patient and/or guardian regarding: the historical points, exam findings, and any diagnostic results supporting the discharge/admit diagnosis, lab results, the need for outpatient follow up, an OB/Gyne specialist, to return to the emergency department if symptoms worsen or persist or if there are any questions or concerns that arise at home. ED course: patient feeling better. No UTI. Urine dip negative. Blood work stable. No significant abdominal findings on exam. Patient sent for TOCO monitoring and was good as well. Will having her f/u with OB . 07/10 09:43 Order name: Urine Microscopic Only; Complete Time: 11:04 [facility] 07/10 10:12 Order name: CBC with Diff; Complete Time: 11:04 [facility] 07/10 10:12 Order name: Basic Metabolic Panel; Complete Time: 12:09 [facility] 07/10 10:15 Order name: Urine Dipstick--Ancillary (enter results); Complete Time: 10:45 07/10 10:19 Order name: Urine --Ancillary (enter results); Complete Time: 12:16 07/10 09:43 Order name: Urine Dipstick-Ancillary (obtain specimen); Complete Time: 10:13 [facility] 07/10 10:13 Order name: IV; Complete Time: 10:45 [facility] 07/10 10:58 Order name: Diet Regular; Complete Time: 10:58 iw Administered Medications: 10:57 Drug: Ringers - Lactated Ringers Solution 1000 ml Route: IV; Rate: bolus; Site: right iw antecubital; 10:57 Drug: Tylenol 1000 mg Route: PO; iw Disposition: 15:56 Co-signature as Attending Physician, Singh Adamson MD I agree with the assessment and hanane plan of care. Disposition: 07/10/20 12:10 Discharged to Home. Impression: Lower abdominal pain, unspecified. - Condition is Stable. - Discharge Instructions: Abdominal Pain During . - Medication Reconciliation Form, Thank You Letter, Antibiotic Education, Prescription Opioid Use form. - Follow up: Private Physician; When: 2 - 3 days; Reason: Recheck today's complaints, Continuance of care, Re-evaluation by your physician. - Problem is new. - Symptoms have improved. Signatures: Dispatcher [employer] Singh Kearns MD MD cha Williams, Irene, RN RN iw Calderon, Tricia, RN RN aa5 Hilario Aldana PA PA jr8 Corrections: (The following items were deleted from the chart) 12:25 12:10 07/10/2020 12:10 Discharged to Home. Impression: Lower abdominal pain, iw unspecified. Condition is Stable. Forms are Medication Reconciliation Form, Thank You Letter, Antibiotic Education, Prescription Opioid Use. Follow up: Private Physician; When: 2 - 3 days; Reason: Recheck today's complaints, Continuance of care, Re-evaluation by your physician. Problem is new. Symptoms have improved. jr8
--- NOTE | 2020-07-10 12:11 | ER ---
Nurse's Notes [facility] Name: Sariah Medina Age: 25 yrs Sex: Female : 1995 Arrival Date: 07/10/2020 Time: 09:06 Bed 13 Private MD: Diagnosis: Lower abdominal pain, unspecified Presentation: 07/10 09:15 Chief complaint: Patient states: was cleared by L\\T\\D prior to ER visit. Pt reports being aa5 7 months and reports low abd pain and urinary frequency x 2-3 days ago. Pt states "I wasn't moving at all before this and then I started moving more like more walking and stuff when the pain started". Pt reports normal movement. [facility] 09:15 Coronavirus screen: Client denies travel out of the [place] in the last 14 days. At this aa5 time, the client does not indicate any symptoms associated with coronavirus-19. Ebola Screen: Patient negative for fever greater than or equal to 101.5 degrees Fahrenheit, and additional compatible Ebola Virus Disease symptoms. Initial Sepsis Screen: Does the patient meet any 2 criteria? No. Patient's initial sepsis screen is negative. Does the patient have a suspected source of infection? No. Patient's initial sepsis screen is negative. Risk Assessment: Do you want to hurt yourself or someone else? Patient reports no desire to harm self or others. Onset of symptoms was June 2020. 09:15 Acuity: PENNY 3 aa5 09:15 Method Of Arrival: Ambulatory aa5 Triage Assessment: 11:00 General: Appears in no apparent distress. Behavior is calm, cooperative. 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 - Social history:: Smoking status: Patient denies any tobacco usage or history of. Patient uses street drugs, marijuana. Screenin:20 Abuse screen: Denies threats or abuse. Denies injuries from another. Nutritional iw screening: No deficits noted. Tuberculosis screening: No symptoms or risk factors identified. Fall Risk None identified. Assessment: 10:15 General: Appears in no apparent distress. comfortable, Behavior is calm, cooperative. iw Pain: Complains of pain in abdomen. Neuro: Level of Consciousness is awake, alert, obeys commands, Oriented to person, place, time, situation, Moves all extremities. Full function. Cardiovascular: Patient's skin is warm and dry. Respiratory: Respiratory effort is even, unlabored, Respiratory pattern is regular, symmetrical. GI: Bowel sounds present X 4 quads. Abd is soft and non tender X 4 quads. Derm: Skin is intact, is healthy with good turgor. Musculoskeletal: Range of motion: intact in all extremities. 11:43 Reassessment: Patient appears in no apparent distress at this time. Patient and/or iw family updated on plan of care and expected duration. Pain level reassessed. Patient is alert, oriented x 3, equal unlabored respirations, skin warm/dry/pink. Patient states feeling better. Patient states symptoms have improved. Vital Signs: 09:18 BP 95 / 55; Pulse 72; Resp 18 S; Temp 98.3(O); Pulse Ox 100% on R/A; aa5 11:42 BP 103 / 57; Pulse 70; Resp 16; Pulse Ox 98% on R/A; iw ED Course: 09:06 Patient arrived in ED. ag5 09:15 Arm band placed on Patient placed in an exam room, on a stretcher. aa5 09:19 Hilario Aldana PA is PHCP. jr8 09:19 Singh Adamson MD is Attending Physician. jr8 09:30 Triage completed. aa5 09:43 Nishi Perez, RN is Primary Nurse. iw 10:15 Patient has correct armband on for positive identification. iw 10:45 Initial lab(s) drawn, by ri, sent to lab. Inserted saline lock: 20 gauge in right em1 antecubital area, using aseptic technique. Blood collected. 12:23 No provider procedures requiring assistance completed. IV discontinued, intact, iw bleeding controlled, No redness/swelling at site. Pressure dressing applied. Administered Medications: 10:57 Drug: Ringers - Lactated Ringers Solution 1000 ml Route: IV; Rate: bolus; Site: right iw antecubital; 10:57 Drug: Tylenol 1000 mg Route: PO; iw Outcome: 12:10 Discharge ordered by . jr8 12:24 Discharged to home ambulatory. iw 12:24 Condition: good 12:24 Discharge instructions given to patient, Instructed on discharge instructions, follow up and referral plans. Demonstrated understanding of instructions, follow-up care. 12:25 Patient left the ED. iw Signatures: Nishi Perez, RN Lucien Anguiano em1 Tricia Bah RN RN aa5 Hilario Aldana PA PA jr8 Yvette Garcia ag5
[2020-07-10 12:32] VITALS: TEMP 98.3
[2020-07-10 12:33] VITALS: BP 103/57; O2SAT 98
== END 2020-07-10 12:25 | disposition home or self-care (01) ==
LOC: ER 09:05
DX: O26.892 Other specified pregnancy related conditions, second trimester (principal); Z3A.27 27 weeks gestation of pregnancy
CPT/HCPCS: 85025; 80048; 36415; 81025; 96374; 99283; J7120; 81003; 81015